=== PATIENT | female | born 1980 | race Caucasian/White ===

== ENCOUNTER 2017-07-16 19:26 | Emergency (ER) | payer OTHER ==
[~2017-07-16] VITALS: Ht 154.9 cm; Wt 62.3 kg
[~2017-07-16 19:26] MED LIST: METH750T2 PO
[2017-07-16 19:29] VITALS: BP 126/83
[2017-07-16] MEDS ORDERED: LIDOCAINE 1%, 20ML ONE (19:40)
[2017-07-16] MEDS ORDERED: BACITRACIN ZINC OINT 500U/GM, 0.9 GM ONE (19:40)
[2017-07-16] MEDS ORDERED: DIPH,PERTUSS(ACELL),TET VAC/PF 0.5 ML IM-VACC ONE ×2 (20:00→20:09)
[2017-07-16] MEDS ORDERED: LIDOCAINE 1%, 20ML SQ ONE (20:00)
== END 2017-07-16 20:42 | disposition home or self-care (01) ==
LOC: ED 20:20
DX: S61.211A Laceration without foreign body of left index finger without damage to nail, initial encounter (principal); W26.0XXA Contact with knife, initial encounter; Y93.89 Activity, other specified; Y92.89 Other specified places as the place of occurrence of the external cause; Y99.8 Other external cause status
CPT/HCPCS: 90471; 90715; 97597; 99284; J3490

== ENCOUNTER 2018-02-17 10:52 | Emergency (ER) | payer OTHER ==
[~2018-02-17] VITALS: Ht 154.9 cm; Wt 67.6 kg
[2018-02-17] MEDS ORDERED: KETOROLAC 30 MG/1 ML ONE (11:56)
[2018-02-17] MEDS ORDERED: KETOROLAC 30 MG/1 ML IM ONE (12:00)
[2018-02-17] MEDS ORDERED: ACET325T14 PO (12:02)
[2018-02-17 12:03] LABS: BASOPHILS # (AUTO) 0.02 x10^3/uL (0-0.1); BASOPHILS % (AUTO) 0 % (0-1); EOSINOPHILS # (AUTO) 0.01 x10^3/uL (0-0.4); EOSINOPHILS % (AUTO) 0 % (1-7); LYMPHOCYTES # (AUTO) 1.13 x10^3/uL (1-3.4); LYMPHOCYTES % (AUTO) 16 % (22-44); MD NO; MEAN CORPUSCULAR HEMOGLOBIN 29.5 pg (27.0-34.8); MEAN CORPUSCULAR HGB CONC 34.8 g/dL (32.4-35.8); MEAN CORPUSCULAR VOLUME 84.8 fL (80-100); MONOCYTES # (AUTO) 0.31 x10^3/uL (0.2-0.8); MONOCYTES % (AUTO) 4 % (2-9); NEUTROPHILS # (AUTO) 5.66 x10^3/uL (1.8-6.8); NEUTROPHILS % (AUTO) 79 % (42-75); PLATELET COUNT 318 x10^3/uL (130-400); RED BLOOD COUNT 4.74 x10^6/uL (3.82-5.3); RED CELL DISTRIBUTION WIDTH 13.7 % (9.6-15.2)
[2018-02-17 12:15] LABS: ALBUMIN 3.7 g/dL (3.4-5.0); ANION GAP 5 mmol/L (5-15); CALCIUM 8.8 mg/dL (8.5-10.1); CHLORIDE 110 mmol/L (98-107); CREATININE 0.66 mg/dL (0.55-1.02)
[2018-02-17 12:31] LABS: MICROSCOPIC AUTO
[2018-02-17 12:33] LABS: CULTURE INDICATED? YES
[2018-02-17 13:31] VITALS: BP 100/59
== END 2018-02-17 13:38 | disposition home or self-care (01) ==
LOC: ED 13:00
DX: G44.209 Tension-type headache, unspecified, not intractable (principal); L04.1 Acute lymphadenitis of trunk
CPT/HCPCS: 36415; 80048; 81001; 82040; 84703; 85025; 87086; 96372; 99284; J1885

== ENCOUNTER 2018-05-29 15:56 | Emergency (ER) | payer SELFPAY ==
[~2018-05-29] VITALS: Ht 154.9 cm; Wt 67.1 kg
[~2018-05-29 15:56] MED LIST changes: +ACET325T14 PO; +NAPR-685 PO
[2018-05-29 16:17] VITALS: BP 112/73
[2018-05-29] MEDS ORDERED: IBUPROFEN 200 MG TABLET PO ONE (17:00)
[2018-05-29] MEDS ORDERED: ACETAMINOPHEN 650 MG/20.3 ML UDC PO ONE (17:00)
[2018-05-29] MEDS ORDERED: ACETAMINOPHEN 500 MG TABLET ONE (17:28)
[2018-05-29] MEDS ORDERED: IBUPROFEN 200 MG TABLET ONE (17:28)
[2018-05-29] MEDS ORDERED: ACETAMINOPHEN 500 MG TABLET PO ONE (17:30)
[2018-05-29 17:33] LABS: BASOPHILS # (AUTO) 0.01 x10^3/uL (0-0.1); BASOPHILS % (AUTO) 0 % (0-1); EOSINOPHILS # (AUTO) 0.06 x10^3/uL (0-0.4); EOSINOPHILS % (AUTO) 1 % (1-7); LYMPHOCYTES # (AUTO) 1.42 x10^3/uL (1-3.4); LYMPHOCYTES % (AUTO) 21 % (22-44); MD NO; MEAN CORPUSCULAR HEMOGLOBIN 28.4 pg (27.0-34.8); MEAN CORPUSCULAR HGB CONC 33.6 g/dL (32.4-35.8); MEAN CORPUSCULAR VOLUME 84.3 fL (80-100); MEAN PLATELET VOLUME 8.6 fL (7.4-10.4); MONOCYTES # (AUTO) 0.53 x10^3/uL (0.2-0.8); MONOCYTES % (AUTO) 8 % (2-9); NEUTROPHILS % (AUTO) 69 % (42-75); PLATELET COUNT 248 x10^3/uL (130-400); RED CELL DISTRIBUTION WIDTH 13.3 % (9.6-15.2)
[2018-05-29 17:48] LABS: ALBUMIN 3.2 g/dL (3.4-5.0); ANION GAP 5 mmol/L (5-15); CALCIUM 8.3 mg/dL (8.5-10.1); CHLORIDE 110 mmol/L (98-107); CREATININE 1.03 mg/dL (0.55-1.02)
== END 2018-05-29 19:12 | disposition home or self-care (01) ==
LOC: ED 16:49
DX: N61.0 Mastitis without abscess (principal)
CPT/HCPCS: 36415; 76642; 80048; 82040; 85025; 99285

== ENCOUNTER 2018-11-14 00:52 | Emergency (ER) | payer OTHER ==
[~2018-11-14] VITALS: Ht 154.9 cm; Wt 67.3 kg
--- NOTE | 2018-11-14 02:01 | NUR ---
L SIDED NECK PAIN X TWO WEEKS. HX OF NECK PAIN. DENIES UE NUMBNESS OR TINGLING
[2018-11-14] MEDS ORDERED: KETOROLAC 30 MG/1 ML ONE (02:41)
[2018-11-14] MEDS ORDERED: DIAZEPAM 5 MG TABLET ONE (02:41)
--- NOTE | 2018-11-14 02:46 | NUR ---
MEDICATED FOR PAIN
[2018-11-14] MEDS ORDERED: DIAZEPAM 5 MG TABLET PO ONE (03:00)
[2018-11-14] MEDS ORDERED: KETOROLAC 60 MG/2 ML IM ONE (03:00)
--- NOTE | 2018-11-14 03:53 | NUR ---
Patient reports she is now comfortable with 2/10 neck pain. Plan of care updated, call winslow within reach.
[2018-11-14 03:55] VITALS: BP 90/59
--- NOTE | 2018-11-14 04:14 | NUR ---
Discharge instructions discussed with patient, verbalizes understanding, questions answered. Prescriptions provided to patient with instruction for use. Patient instructed not to drive home, family at bedside to drive patient home. Patient ambulates with steady gait to discharge desk in no acute distress.
== END 2018-11-14 04:16 | disposition home or self-care (01) ==
LOC: ED 03:50
DX: S16.1XXA Strain of muscle, fascia and tendon at neck level, initial encounter (principal); G44.209 Tension-type headache, unspecified, not intractable; X58.XXXA Exposure to other specified factors, initial encounter; Y93.89 Activity, other specified; Y92.89 Other specified places as the place of occurrence of the external cause; Y99.8 Other external cause status
CPT/HCPCS: 72050; 96372; 99283; J1885

== ENCOUNTER 2019-02-17 07:35 | Emergency (ER) | payer SELFPAY ==
[~2019-02-17] VITALS: Ht 154.9 cm; Wt 66.4 kg
[2019-02-17 07:39] VITALS: BP 118/78
--- NOTE | 2019-02-17 07:44 | NUR ---
THIS IS A 38 YEAR OLD FEMALE WHO C/O OF LEFT BOTTOM OF FOOT PAIN. HURTS WHEN SHE WALKS
[2019-02-17] MEDS ORDERED: KETOROLAC 30 MG/1 ML ONE (07:52)
[2019-02-17] MEDS ORDERED: KETOROLAC 30 MG/1 ML IM ONE (08:00)
--- NOTE | 2019-02-17 08:36 | NUR ---
PT STATES PAIN IS BETTER.
--- NOTE | 2019-02-17 08:36 | NUR ---
Patient/Caregiver given discharge instructions and they have confirmed that they understand the instructions. Patient ambulatory with steady gait.
== END 2019-02-17 08:38 | disposition home or self-care (01) ==
LOC: ED 08:10
DX: M72.2 Plantar fascial fibromatosis (principal)
CPT/HCPCS: 73630; 82962; 96372; 99283; J1885

== ENCOUNTER 2019-02-24 15:40 | Emergency (ER) | payer OTHER ==
[~2019-02-24] VITALS: Ht 154.9 cm; Wt 64.8 kg
[2019-02-24 15:43] VITALS: BP 120/80
== END 2019-02-24 16:23 | disposition home or self-care (01) ==
LOC: ED 16:20
DX: M72.2 Plantar fascial fibromatosis (principal)
CPT/HCPCS: 99283

== ENCOUNTER 2019-11-07 20:25 | Emergency (ER) | payer SELFPAY ==
[~2019-11-07] VITALS: Ht 154.9 cm; Wt 62.8 kg
--- NOTE | 2019-11-07 20:50 | NUR ---
PT AMBULATED TO ROOM WITH FAMILY. PT WALKED TO RESTROOM FOR URINE SAMPLE.
--- NOTE | 2019-11-07 21:02 | NUR ---
PT C/O ABDOMINAL PAIN, N/V/D, STARTING TODAY. REPORTS PAIN IN ALL QUADRANTS. PT HAS TENDERNESS WITH PALP TO ABDOMEN. REPORTS X1 EPISODE VOMITING AROUND NOON. DENIES HX OF SAME. DENIES RECENT HOSPITALIZATION. ERP IN ROOM TO EVAL PT.
[2019-11-07 21:14] LABS: BASOPHILS # (AUTO) 0.01 x10^3/uL (0-0.1); BASOPHILS % (AUTO) 0 % (0-1); EOSINOPHILS # (AUTO) 0.06 x10^3/uL (0-0.4); EOSINOPHILS % (AUTO) 1 % (1-7); LYMPHOCYTES # (AUTO) 0.77 x10^3/uL (1-3.4); LYMPHOCYTES % (AUTO) 7 % (22-44); MD NO; MEAN CORPUSCULAR HEMOGLOBIN 27.9 pg (27.0-34.8); MEAN CORPUSCULAR HGB CONC 33.8 g/dL (32.4-35.8); MEAN CORPUSCULAR VOLUME 82.4 fL (80-100); MEAN PLATELET VOLUME 8.1 fL (7.4-10.4); MONOCYTES % (AUTO) 3 % (2-9); NEUTROPHILS # (AUTO) 9.79 x10^3/uL (1.8-6.8); NEUTROPHILS % (AUTO) 90 % (42-75); PLATELET COUNT 305 x10^3/uL (130-400); RED BLOOD COUNT 5.34 x10^6/uL (3.82-5.3); RED CELL DISTRIBUTION WIDTH 13.9 % (9.6-15.2)
[2019-11-07 21:26] LABS: ALANINE AMINOTRANSFERASE 20 U/L (12-78); ANION GAP 7 mmol/L (5-15); CALCIUM 8.9 mg/dL (8.5-10.1); CHLORIDE 109 mmol/L (98-107); CREATININE 0.72 mg/dL (0.55-1.02)
[2019-11-07] MEDS ORDERED: MORPHINE SULFATE 4 MG/ML, 1ML IVPush PRN (21:30)
[2019-11-07] MEDS ORDERED: ONDANSETRON 2MG/ML, 2ML IVPush ONE (21:30)
[2019-11-07 21:31] LABS: ALKALINE PHOSPHATASE 72 U/L (45-117); BILIRUBIN,TOTAL 1.5 mg/dL (0.2-1.0); TOTAL PROTEIN 8.2 g/dL (6.4-8.2)
[2019-11-07 21:36] LABS: CULTURE INDICATED? YES; MICROSCOPIC INDICATED
[2019-11-07] MEDS ORDERED: MORPHINE SULFATE 4 MG/ML, 1ML ONE (21:37)
[2019-11-07] MEDS ORDERED: ONDANSETRON 2MG/ML, 2ML ONE (21:37)
[2019-11-07] MEDS ORDERED: SODIUM CHLORIDE FLUSH 10ML SYR IVF ONE (22:00)
--- NOTE | 2019-11-07 22:38 | NUR ---
PT REPORTS "I FEEL BETTER". PT DENIES ANY PAIN AT THIS TIME.
[2019-11-07] MEDS ORDERED: MAALOX/HYOSCYAMINE/LIDOCAINE 45 ML BTL ONE (22:48)
[2019-11-07] MEDS ORDERED: MAALOX/HYOSCYAMINE/LIDOCAINE 45 ML BTL PO ONE (23:00)
[2019-11-07] MEDS ORDERED: OMNIPAQUE 350 MG/ML, 100ML BOTTLE ONE (23:00)
--- NOTE | 2019-11-07 23:32 | NUR ---
PT RESTING ON GURNEY WITH FAMILY AT BS, CALL LIGHT WITHN REACH, MONITORING IN PLACE. PT DENIES FURTHER NEEDS AT THIS TIME
[2019-11-07 23:48] VITALS: BP 107/54
== END 2019-11-07 23:51 | disposition home or self-care (01) ==
LOC: ED 21:10
DX: K29.00 Acute gastritis without bleeding (principal); R06.02 Shortness of breath; Z85.43 Personal history of malignant neoplasm of ovary; Z85.3 Personal history of malignant neoplasm of breast
CPT/HCPCS: 36415; 74177; 76700; 80053; 81001; 83690; 84703; 85025; 87086; 96374; 96375; 99284; J2270; J2405; Q9967

== ENCOUNTER 2020-05-17 20:17 | Emergency (ER) | payer MEDICAID, OTHER ==
[~2020-05-17] VITALS: Ht 154.9 cm; Wt 65.5 kg
[2020-05-17 20:23] VITALS: BP 132/76
[2020-05-17] MEDS ORDERED: METHOCARBAMOL 750 MG TABLET PO ONE (21:00)
[2020-05-17] MEDS ORDERED: METHOCARBAMOL 750 MG TABLET ONE (21:27)
== END 2020-05-17 21:57 | disposition home or self-care (01) ==
LOC: ED 21:45
DX: S16.1XXA Strain of muscle, fascia and tendon at neck level, initial encounter (principal); M62.838 Other muscle spasm; V49.49XA Driver injured in collision with other motor vehicles in traffic accident, initial encounter; Y93.89 Activity, other specified; Y92.89 Other specified places as the place of occurrence of the external cause; Y99.8 Other external cause status
CPT/HCPCS: 72125; 99284

== ENCOUNTER 2021-08-02 21:53 | Emergency (ER) | payer SELFPAY ==
[~2021-08-02] VITALS: Ht 154.9 cm; Wt 65.0 kg
[~2021-08-02 21:53] MED LIST changes: +METH-640 PO; -METH750T2 PO
[2021-08-02] MEDS ORDERED: LORazepam 2 MG/ML, 1ML ONE (22:20)
[2021-08-02] MEDS ORDERED: LORazepam 2 MG/ML, 1ML IVPush ONE (22:30)
[2021-08-02 22:33] LABS: BASOPHILS % (AUTO) 0 % (0-1); EOSINOPHILS % (AUTO) 0 % (1-7); LYMPHOCYTES % (AUTO) 19 % (22-44); MEAN CORPUSCULAR HEMOGLOBIN 29.8 pg (27.0-34.8); MEAN CORPUSCULAR HGB CONC 35.9 g/dL (32.4-35.8); MEAN PLATELET VOLUME 8.2 fL (7.4-10.4); MONOCYTES % (AUTO) 3 % (2-9); NEUTROPHILS % (AUTO) 77 % (42-75); PLATELET COUNT 291 x10^3/uL (130-400); RED BLOOD COUNT 4.78 x10^6/uL (3.82-5.3); RED CELL DISTRIBUTION WIDTH 14.3 % (9.6-15.2)
[2021-08-02 22:38] LABS: ALBUMIN 3.9 g/dL (3.4-5.0); ANION GAP 10 mmol/L (5-15); CHLORIDE 110 mmol/L (98-107); CREATININE 0.57 mg/dL (0.55-1.02)
[2021-08-02 23:16] VITALS: BP 101/56
== END 2021-08-02 23:44 | disposition home or self-care (01) ==
LOC: ED 22:00
DX: F41.1 Generalized anxiety disorder (principal); R06.4 Hyperventilation
CPT/HCPCS: 36415; 80048; 82040; 85025; 96374; 99283; J2060

== ENCOUNTER 2021-08-04 12:28 | Emergency (ER) | payer SELFPAY ==
[~2021-08-04] VITALS: Ht 154.9 cm; Wt 65.4 kg
[2021-08-04 14:35] VITALS: BP 109/64
== END 2021-08-04 15:44 | disposition home or self-care (01) ==
LOC: ED 13:10
DX: N30.01 Acute cystitis with hematuria (principal)